=== PATIENT | female | born 1945 | race African-American/Black ===

== ENCOUNTER 2017-04-19 10:25 | Outpatient (CLI) | payer MEDICARE ==
[2017-04-19] MEDS ORDERED: Gadobenate Dimeglumine 529 MG/1 ML (20ML VIAL) ONE (13:19)
== END 2017-04-19 10:26 | disposition home or self-care (01) ==
LOC: BICMRI 10:25
PROVIDERS: ATTEND Surgery
DX: N64.52 Nipple discharge (principal)
CPT/HCPCS: A9579; C8908

== ENCOUNTER 2017-05-02 13:34 | Outpatient (CLI) | payer MEDICARE | END 2017-05-02 13:35 | disposition home or self-care (01) | LOC: BICULT 13:34 | PROVIDERS: ATTEND Surgery | DX: R92.8 Other abnormal and inconclusive findings on diagnostic imaging of breast (principal); Z85.3 Personal history of malignant neoplasm of breast ==

== ENCOUNTER 2018-10-16 13:20 | Outpatient (CLI) | payer MEDICARE ==
--- NOTE | 2018-10-16 13:40 | BD ---
EXAM: DEXA bone density examination HISTORY: 72-year-old postmenopausal female for screening COMPARISON: None FINDINGS: L1--bone mineral density 1.172 g/sq cm; T score 1.7 L2--bone mineral density 1.155 g/sq cm; T score 1.2 L3--bone mineral density 1.217 g/sq cm; T score 1.2 L4--bone mineral density 1.131 g/sq cm; T score 0.6 Total L1-L4--bone mineral density 1.169 g/sq cm; T score 1.1 Left femoral neck--bone mineral density0.946; T score 0.9 Total proximal left femur--bone mineral density 1.103; T score 1.3 IMPRESSION: Normal bone density
== END 2018-10-16 13:21 | disposition home or self-care (01) ==
LOC: BICMAMMO 13:20
PROVIDERS: ATTEND Family Medicine
DX: Z13.820 Encounter for screening for osteoporosis (principal); Z78.0 Asymptomatic menopausal state
CPT/HCPCS: 77080

== ENCOUNTER 2023-08-21 08:02 | Day surgery (SDC) | payer OTHER ==
[2023-08-18 11:20] VITALS: BMI 24.7
[2023-08-21] MEDS ORDERED: fentaNYL 50 mcg/mL 1 mL Vial ONE (11:54)
[2023-08-21] MEDS ORDERED: Lidocaine 1% PF 5 ML VIAL ONE (11:54)
[2023-08-21] MEDS ORDERED: PROPOFOL 20 ML ONE (11:54)
[2023-08-21] MEDS ORDERED: Sodium Chloride 0.9% 100 ML ONE (12:00)
[2023-08-21] MEDS ORDERED: CEFAZOLIN 2 GM VIAL ONE (12:00)
[2023-08-21] MEDS ORDERED: EPINEPHrine 1 MG/ML VIAL ONE (12:58)
[2023-08-21] MEDS ORDERED: Bupivacaine 0.25% HCL 30 ML VIAL ONE (12:58)
[2023-08-21] MEDS ORDERED: Isosulfan Blue 50 MG/5 ML VIAL ONE (12:58)
[2023-08-21] MEDS ORDERED: Dexamethasone 4 mg/ml Vial ONE (13:27)
[2023-08-21] MEDS ORDERED: ePHEDrine Sulfate 50 MG/10 ML VIAL ONE (14:03)
[2023-08-21] MEDS ORDERED: Ondansetron PF 4 MG/2 ML Vial ONE (14:39)
[2023-08-21] MEDS ORDERED: Labetalol HCl 100 MG/20 ML VIAL ONE (14:54)
[2023-08-21] MEDS ORDERED: HYDROcodone/Acetaminophen 5/325 mg Tablet ONE (16:11)
== END 2023-08-21 17:17 | disposition home or self-care (01) ==
LOC: NM 08:02
PROVIDERS: ATTEND Surgery
PROC: 0HBU0ZZ Excision of Left Breast, Open Approach (ICD-10-PCS; principal; 2023-08-21)
PROC: 07B60ZZ Excision of Left Axillary Lymphatic, Open Approach (ICD-10-PCS; 2023-08-21)
DX: C50.912 Malignant neoplasm of unspecified site of left female breast (principal); I10 Essential (primary) hypertension; K44.9 Diaphragmatic hernia without obstruction or gangrene; K21.9 Gastro-esophageal reflux disease without esophagitis; M19.90 Unspecified osteoarthritis, unspecified site; I47.10 Supraventricular tachycardia, unspecified; Z98.890 Other specified postprocedural states; Z79.899 Other long term (current) drug therapy
CPT/HCPCS: 19303; 38525; 38900; 78195; A6258; A9541; J0171; J0665; J1100; J2405; J2704; J3010; J3490; Q9968; 88307; 88309; 88341; 88342